=== PATIENT | male | born 1990 | race Caucasian/White ===

== ENCOUNTER 2020-02-29 11:15 | Emergency (ER) | payer OTHER ==
[2020-02-29 11:25] VITALS: BP 122/79; PULSE 61; TEMP 97.2; BMI 21.1
--- NOTE | 2020-02-29 12:00 | PDOC ---
History of Present Illness - General Chief Complaint: Eye Problem Stated Complaint: RT. EYE ISSUE Time Seen by Provider: 02/29/20 11:38 - History of Present Illness Initial Comments: 02/29/20 11:58 29-year-old male no comorbidities presents for right eye irritation x2 days. Past History - Medical History Allergies/Adverse Reactions: Allergies Allergy/AdvReac Type Severity Reaction Status Date / Time No Known Allergies Allergy Verified 02/29/20 11:23 Home Medications: Ambulatory Orders Erythromycin 0.5% Eye Ointment [Erythromycin 0.5% Eye Ointment -] 1 applic OD TID 5 Days #1 tube 02/29/20 - Psycho-Social/Smoking History Smoking History: Never smoked Number of Cigarettes Smoked Daily: 5 'Breaking Loose' booklet given: 12/17/15 - Substance Abuse Hx (Audit-C & DAST Scrn) How often the patient has a drink containing alcohol: Never Score: In Men: 4 or > Positive; In Women: 3 or > Positive: 0 Screen Result (Pos requires Nsg. Audit-10AR): Negative In the last yr the pt used illegal drug/Rx for NonMed reason: Yes Score: Yes response is considered Positive: 1 Screen Result (Positive result requires Nsg. DAST-10): Positive Review of Systems - Review of Systems Constitutional: No: Fever HEENTM: Yes: Eye Pain. No: Blurred Vision, Tearing, Recent change in vision, Double Vision, Cataracts *Physical Exam - Vital Signs Last Vital Signs Temp Pulse Resp BP Pulse Ox 97.2 F L 61 18 122/79 90 L 02/29/20 11:23 02/29/20 11:23 02/29/20 11:23 02/29/20 11:23 02/29/20 11:23 - Physical Exam 02/29/20 11:58 Right upper lid is swollen with punctate pustule at the medial upper lid border. Conjunctive a sclera and eyeball are otherwise normal. Medical Decision Making - Medical Decision Making 02/29/20 11:58 Warm compresses and erythromycin ointment 3 times daily x5 days for external hordeolum follow-up with ophthalmology I have reviewed the pathophysiology with the patient. They are in agreement with the treatment plan all questions were answered to their satisfaction. Understanding for follow-up without fail was also conveyed to the patient. Again they are in agreement. Discharge - Discharge Information Problems reviewed: Yes Clinical Impression/Diagnosis: External hordeolum Condition: Stable Disposition: HOME - Admission No - Additional Discharge Information Prescriptions: Erythromycin 0.5% Eye Ointment [Erythromycin 0.5% Eye Ointment -] 1 applic OD TID 5 Days #1 tube - Follow up/Referral Referrals: Joe Guillen MD [Staff Physician] - - Patient Discharge Instructions Additional Instructions: Warm compresses multiple times a day and please use the erythromycin eye ointment as directed. Return to the emergency room for further issues and without fail follow-up with ophthalmology in 1 to 2 days for further evaluation and treatment options. Return to the emergency room at any time should your symptoms get worse or you develop other problems. - Post Discharge Activity
--- OUTSIDE RECORDS SUMMARY | 2020-02-29 13:25 | XMS ---
:1990 Author Organization [facility] Support Name Relationship Address Phone [employer] Unavailable [address] [place] [address] Re-disclosure Warning The records that you are about to access may contain information from federally- assisted alcohol or drug abuse programs. If such information is present, then the following federally mandated warning applies: This information has been disclosed to you from records protected by federal confidentiality rules (42 CFR part 2). The federal rules prohibit you from making any further disclosure of this information unless further disclosure is expressly permitted by the written consent of the person to whom it pertains or as otherwise permitted by 42 CFR part 2. A general authorization for the release of medical or other information is NOT sufficient for this purpose. The Federal rules restrict any use of the information to criminally investigate or prosecute any alcohol or drug abuse patient.The records that you are about to access may contain highly sensitive health information, the redisclosure of which is protected by Article 27-F of the [facility] Public Health law. If you continue you may haveaccess to information: Regarding HIV / AIDS; Provided by facilities licensed or operated by the [facility] Office of Mental Health; or Provided by the [facility] Office for People With Developmental Disabilities. If such information is present, then the following [facility] mandated warning applies: This information has been disclosed to you from confidential records which are protected by state law. State law prohibits you from making any further disclosure of this information without the specific written consent of the person to whom it pertains, or as otherwise permitted by law. Any unauthorized further disclosure in violation of state law may result in a fine or mcfp sentence or both. A general authorization for the release of medical or other information is NOT sufficient authorization for further disclosure. Encounters Encounter Providers Location Date Indications Data Source(s ) Outpatient 08/28/2018 07:31:00 [facility] ([facility]) Insurance Providers Payer name Policy type Policy ID Covered Covered democrat's Policy P lidia / Coverage democrat ID relationship to Dill Inf ormation type dill [employer] [id number] SP [id number] MEDICAID [id number] SP [id number] [facility] [id number]
== END 2020-02-29 12:04 | disposition home or self-care (01) ==
LOC: JERFT 11:15
DX: H00.013 Hordeolum externum right eye, unspecified eyelid (principal)
CPT/HCPCS: 99283-25